=== PATIENT | male | born 1985 | race Caucasian/White ===

== ENCOUNTER 2016-08-13 15:32 | Emergency (ER) | payer BC ==
[~2016-08-13] VITALS: Ht 180.3 cm; Wt 71.7 kg
[2016-08-13 17:15] LABS: HEMATOCRIT 40.2 % (38.0-50.0); MCH 31.9 PG (29.0-34.0); MCHC 33.8 G/DL (30.0-36.0); MCV 94.1 FL (86-99); MEAN PLAT.VOLUME 9.3 uM^3 (9.0-12.4); PLATELET COUNT 264 K/uL (156-360); RBC DIS.WIDTH-CV 12.4 % (11.8-14.6); RBC DIS.WIDTH-SD 43.1 % (39-53); RED BLOOD COUNT 4.27 M/uL (4.00-5.50); WHITE BLOOD COUNT 19.8 K/uL (4.1-10.2)
[2016-08-13 17:25] LABS: CHLORIDE 104 mEq/L (99-109); SODIUM 137 mEq/L (136-147)
[2016-08-13 17:27] LABS: GLUCOSE 74 mg/dL (70-99)
[2016-08-13 17:28] LABS: ANION GAP 10 MEQ/L (2-14)
[2016-08-13 17:31] LABS: ALKALINE PHOSPHATASE 48 IU/L (3-129); GFR ESTIMATE (CALCULATED) > 59 mL/min/
[2016-08-13 17:32] LABS: UREA NITROGEN (BUN) 19 mg/dL (9-23)
[2016-08-13 20:02] VITALS: BP 122/53
== END 2016-08-13 20:05 | disposition home or self-care (01) ==
LOC: EME 15:32
PROVIDERS: Physician Assistant Medical
DX: S71.012A Laceration without foreign body, left hip, initial encounter (principal); S00.83XA Contusion of other part of head, initial encounter; V17.0XXA Pedal cycle driver injured in collision with fixed or stationary object in nontraffic accident, initial encounter; Y93.55 Activity, bike riding; M45.9 Ankylosing spondylitis of unspecified sites in spine; Z88.0 Allergy status to penicillin
CPT/HCPCS: 70450; 70486; 74177; 80053; 85027; 99281; 99285; J7030